=== PATIENT | female | born 1960 | race American Indian/Alaskan Native ===

== ENCOUNTER 2020-06-07 14:30 | Emergency (ER) | payer BC ==
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
[2020-06-07] MEDS ORDERED: HYDROcodone/ACETAMINOPHEN 5-325 MG TAB PO STA (20:59)
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
[2020-06-07 23:44] VITALS: BP 140/80
== END 2020-06-07 23:42 | disposition home or self-care (01) ==
LOC: ED 14:30
DX: M54.5 Low back pain (principal); Z79.899 Other long term (current) drug therapy; V49.49XA Driver injured in collision with other motor vehicles in traffic accident, initial encounter; Y93.89 Activity, other specified; Y92.488 Other paved roadways as the place of occurrence of the external cause; Y99.8 Other external cause status
CPT/HCPCS: 72100; 99283